=== PATIENT | female | born 1965 | race American Indian/Alaskan Native ===

== ENCOUNTER → 2018-05-06 12:37 | Outpatient (CLI) | payer MEDICAID, OTHER, SELFPAY ==
--- NOTE | 2018-05-06 12:40 | DI.CT.S_ITS ---
PROCEDURE: CT ABDOMEN PELVIS W CON INDICATIONS: Early satiety, LUQ abdominal pain TECHNIQUE: After the administration of oral and intravenous contrast, 5 mm thick sections acquired from the diaphragms to the symphysis. 5 mm thick coronal and sagittal reformats were performed. For radiation dose reduction, the following was used: automated exposure control, adjustment of mA and/or kV according to patient size. COMPARISON: [facility], CT, ABDOMEN/PELVIS WITH CONTRAST, 04/13/2017, 10:21. [facility], CT, CHEST/ABD/PEL WITH CONTRAST, 12/29/2016, 12:03. FINDINGS: Image quality: Excellent. ABDOMEN: Lung bases: There is a 3 mm noncalcified pulmonary nodule along the posterior right lower lobe pleura, which is stable when compared with prior CT of 12/29/2016. Lung bases are otherwise clear. Heart size is normal. Solid organs: Liver is normal in size and enhancement. There is a 1.7 cm gallstone. The gallbladder appears enlarged with diffuse wall thickening and a small volume of pericholecystic fluid. At the junction of the gallbladder with the cystic duct there is a 1.3 cm irregular mass-like lesion which appears to demonstrate soft tissue attenuation (Hounsfield units of 48), with decompressed cystic duct identified distally. Pancreas enhances normally. Spleen is normal in size and enhancement. No adrenal nodules. Kidneys are normal in size and enhancement, without hydronephrosis. Peritoneum and bowel: Colonic anastomotic suture line noted within the left lower quadrant of the abdomen, with a moderate volume of stool noted proximally. Surgical clips are noted within the left lower quadrant mesentery. The appendix is not clearly identified on this exam, but no right lower quadrant inflammatory findings to suggest acute appendicitis are identified. No free fluid or air. Nodes and vessels: No retroperitoneal or mesenteric adenopathy. Aorta and inferior vena cava are normal in caliber. Miscellaneous: There is a 2.0 cm wide mouth fat-containing mid abdominal ventral hernia. PELVIS: Genitourinary: Bladder wall thickness is normal. There are small foci of air within the bladder, possibly from prior Davidson catheter placement. Miscellaneous: No inguinal hernias or adenopathy. There is a 3.3 cm simple-attenuation cyst in the left adnexa. The uterus and right adnexa are unremarkable. Bones: Mild multilevel degenerative changes of the spine. IMPRESSION: #1. Indeterminate 1.3 cm soft tissue attenuation mass-like lesion at the junction of the gallbladder with the cystic duct. This may represent a true mass, an irregular attenuation gallstone, or a thickened fold of the gallbladder. Consider MRCP for further evaluation. #2. Interval development of diffuse gallbladder wall thickening with a small volume of pericholecystic fluid, which can be seen with acute or chronic cholecystitis. Clinical correlation for right upper quadrant pain suggested. #3. Postsurgical changes of the colon in the left lower quadrant of the abdomen, resulting in a moderate colonic stool burden proximally from the anastomosis. #4. 3 mm right lower lobe pulmonary nodule, stable when compared with prior CT of 12/29/16. Consider followup CT of the chest in December 2018 to demonstrate 2 year stability of this nodule. Dictated by: Juan Finnegan M.D. on 05/06/2018 at 16:04 Approved by: Juan Finnegan M.D. on 05/06/2018 at 17:05
== END ==
PROVIDERS: Family Provider Family Medicine; PCP Family Medicine; Visit Provider Surgery
DX: R10.12 Left upper quadrant pain (principal); R68.81 Early satiety; K82.9 Disease of gallbladder, unspecified; R91.1 Solitary pulmonary nodule; K80.80 Other cholelithiasis without obstruction; K43.9 Ventral hernia without obstruction or gangrene; N94.89 Other specified conditions associated with female genital organs and menstrual cycle; Z98.0 Intestinal bypass and anastomosis status
CPT/HCPCS: 74177; Q9967

== ENCOUNTER 2018-07-15 06:23 | Day surgery (SDC) | payer MEDICAID, OTHER, SELFPAY ==
--- NOTE | 2018-07-15 | PATH_ITS ---
[facility] Accession Number: [id number] . 01 Material submitted: . PART A: RANDOM COLON BIOPSIES PART B: POLYP AT 30 . 02 Diagnosis: A. Random Colon, Biopsies: Colonic mucosa with no diagnostic abnormality. Negative for active, chronic and microscopic colitis. Negative for dysplasia and malignancy. . B. Colon, Polyp at 30, Biopsy: Polypoid granulation tissue, consistent with inflamatory polyp. Negative for dysplasia and malignancy. MRV/07/16/2018 . 02 Electronically signed: . Guerita Ferris MD, Pathologist NPI- [id number] . 01 Gross description: . Received two formalin-filled containers both labeled with the patient's name. . A. In a container labeled random mucosal are four 0.1 to 0.4 cm portions of tissue. Entirely submitted in cassette A. B. In a container labeled polyp at 30, the specimen consists of a 0.5 cm portion of tissue. Entirely submitted in cassette B. ([facility]:[id number]) /[facility] . 02 Pathologist provided ICD-10: R10.9 . 02 CPT . 327591, 000292 Performed at: [address] [facility] [address], [place], [place] [id number] MD Rian Monahan MD Phone: [phone] Performed at: 02 [facility] [address] [place], [place] [id number] MD Guerita Ferris MD Phone: [phone]
[2018-07-15 07:09] VITALS: BP 155/93; PULSE 84; RESP 16; TEMP 36.5; O2SAT 99; BMI 29.7
[2018-07-15] MEDS: SODIUM CHLORIDE 0.9% 1,000 ML 84 ML IV (07:44)
[2018-07-15] MEDS: MIDAZOLAM 5 MG/5 ML VIAL IV (08:58)
[2018-07-15] MEDS: fentaNYL 250 MCG/5 ML INJ IV (08:59)
[2018-07-15 09:11] VITALS: BP 132/95; PULSE 99; RESP 13; TEMP 36.6; O2SAT 98
--- NOTE | 2018-07-15 09:11 | PM.HP.1 ---
History of Present Illness Date Patient Seen: 07/15/18 Time Patient Seen: 09:11 Chief complaint: 72079 COLONOSCOPY Narrative: Iraida is a wonderful 53-year-old lady who is well known to me from prior visits. In January of 2017 she underwent a lap assisted sigmoid colectomy for a large serrated adenoma. She did relatively well postoperatively but she says that she has continued to suffer with intermittent constipation and diarrhea and some left side flank pain. She wonders if this is related to her prior surgery or her bowel in any way. She denies any blood in her stool and denies any unexpected weight loss. Patient History Family & Social History Family History: Reviewed 07/15/18 by Inna Prescott MD Social History: household members spouse Tobacco & Substance use: Smoking Status Never smoker alcohol intake current Meds Home Medications Medication Instructions Recorded Confirmed Type [id number]-pqnoagskqelen-lyhfdskl 1 tab PO PRN PRN #0 01/07/17 07/15/18 History [Excedrin Extra Strength] cholecalciferol (vitamin D3) 1,000 unit PO DAILY #0 01/07/17 07/15/18 History [Vitamin D3] doxycycline hyclate 50 mg PO QDAY #0 01/07/17 07/15/18 History hydrochlorothiazide 12.5 mg PO QDAY #0 01/07/17 07/15/18 History hydroxyzine HCl 50 mg PO HSP PRN #0 01/07/17 07/15/18 History lorazepam 0.5 mg PO TIDP PRN #0 01/07/17 07/15/18 History losartan 25 mg PO QDAY #0 01/07/17 07/15/18 History omeprazole 40 mg PO BID #0 01/07/17 07/15/18 History acetaminophen 325 mg PO PRN PRN #0 04/13/17 07/15/18 History ibuprofen [Advil] 200 mg PO Q4HP PRN #0 04/13/17 07/15/18 History bupropion HCl 100 mg PO DAILY 07/15/18 07/15/18 History calcium carbonate [Calcium 500] 1,000 mg PO DAILY 07/15/18 07/15/18 History ondansetron [Zofran ODT] 4 mg SUBLINGUAL Q6HP PRN 07/15/18 07/15/18 History Allergies Allergy/AdvReac Type Severity Reaction Status Date / Time adhesive [ADHESIVE] Allergy Intermediate RASH - Verified 07/15/18 07:00 WITH SOME BANDAIDS, EYE LASH GLUE Review of Systems Review of Systems All systems reviewed & are unremarkable except as noted in HPI and below Exam Vital Signs (past 8 hours): - 07/15/18 07:09 Temperature 97.7 F Pulse Rate 84 Respiratory Rate 16 Blood Pressure 155/93 H Pulse Oximetry 99 Oxygen Delivery Method Room Air Narrative Exam Narrative: Examination reveals a healthy-appearing woman in no obvious distress HEENT: Normocephalic and atraumatic, pupils equal round reactive to light accommodation with anicteric sclera Lungs: Clear to auscultation bilaterally Heart: Regular rate and rhythm without murmur rub or gallop Abdomen: Soft, globally mildly tender to palpation. No rebound or guarding. Active bowel sounds. The incision is well-healed and without erythema or drainage. Extremities: Warm and well perfused without edema Assessment & Plan Plan: Assessment/Plan Narrative: 53-year-old lady with a history of a very large serrated adenoma that had to be removed surgically about 18 months ago. She continues to have symptoms of constipation and diarrhea which may be related to irritable bowel. We have discussed the risks and benefits of colonoscopy today. She needs it for multiple reasons but the most significant is for surveillance regarding her history of colon polyps. She does have a CT the abdomen and pelvis that is negative for any abnormalities or pathologic processes. We discussed risks and benefits of colonoscopy and the patient expressed desire to complete the procedure today.
--- NOTE | 2018-07-15 09:13 | PM.OP.1 ---
Operative Date/Time/Diagnoses Date of procedure: 07/15/18 Time of procedure: 09:14 Pre-op diagnosis: Personal history of colon polyps Post-op diagnosis: same Procedure & Clinicians Procedure: Colonoscopy to the cecum with snare polypectomy and random mucosal biopsies Same procedure as scheduled: Yes Indications: Last colonoscopy approximately 18 months ago Surgeon: Inna Prescott Anesthesia Type: Sedation (Versed 6 mg; fentanyl 200 mcg) Operative Notes Findings: 1. Excellent prep 2. Anastomosis at 30 cm from the anal verge. Wide open with no evidence of stricture 3. Pedunculated polyp at the anastomosis -5 mm and removed with snare and cautery. 4. Essentially normal-appearing mucosa. Multiple random mucosal biopsies were taken to rule out microscopic colitis 5. Grade 1-2 internal hemorrhoids 6. Very minimal diverticulosis Closure Type: not applicable Estimated Blood Loss (mL): 1 Procedure in detail: After obtaining informed consent, the patient was brought to the GI suite and placed in the left lateral decubitus position on the examination table. After placement of appropriate monitors, the patient was given incremental doses of Versed and Fentanyl until an appropriate level of sedation was achieved. A time out was held per SCOAP protocol. A digital rectal examination was performed and did not reveal any masses or obstructing lesions. The colonoscope was gently passed into the patient's anus and the entire colon navigated to the level of the cecum with minimal difficulty. Once in the cecum, the scope was withdrawn being sure to go before and beyond all mucosal folds and prominences and get an excellent examination. The findings are noted above. At the level of the rectal vault, the scope was retroflexed and the internal anal canal was examined. The scope was straightened and air aspirated from the colon. The instrument was removed from the patient's body and the procedure was concluded. The patient was allowed to awaken from sedation without difficulty and taken to the post-anesthesia care unit in good condition. Total sedation time was 26 min Total withdrawal time was 13 min and 41 sec Complications: none Condition: stable Disposition: PACU Plan for aftercare: 1. Discharge to home 2. We will contact you with pathology results and any additional recommendations 3. Tentatively plan for next colonoscopy in 1 year due the presence of a polyp of significant size.
[2018-07-15 09:16] VITALS: BP 119/88; PULSE 97; RESP 16; O2SAT 96
[2018-07-15 09:21] VITALS: BP 127/93; PULSE 99; RESP 12; TEMP 36.7; O2SAT 96
--- NOTE | 2018-07-15 09:24 | SUR.PHASEI ---
Stable pacu stay, dr mosqueda to bedside and spoke at length to pt about her proceedure.
[2018-07-15 09:34] VITALS: BP 121/84; PULSE 95; RESP 15; TEMP 36.2; O2SAT 94
== END 2018-07-15 09:45 | disposition home or self-care (01) ==
PROVIDERS: Family Provider Family Medicine; PCP Family Medicine; Visit Provider Surgery
PROC: 0DJD8ZZ Inspection of Lower Intestinal Tract, Via Natural or Artificial Opening Endoscopic (ICD-10-PCS; CPT 45378; principal; 2018-07-15 07:45)
DX: Z09 Encounter for follow-up examination after completed treatment for conditions other than malignant neoplasm (principal); Z86.010 Personal history of colon polyps; K64.1 Second degree hemorrhoids; K57.30 Diverticulosis of large intestine without perforation or abscess without bleeding; K63.5 Polyp of colon
CPT/HCPCS: 45385; 88305; 99152; 99153; J2250; J3010

== ENCOUNTER → 2019-02-09 07:43 | Outpatient (CLI) | payer MEDICAID, OTHER, SELFPAY ==
--- NOTE | 2019-02-09 07:53 | DI.CT.S_ITS ---
PROCEDURE: CT CHEST WO CON INDICATIONS: Solitary pulmonary nodule TECHNIQUE: Noncontrast 2.0-2.5 mm thick sections acquired from the pulmonary apices to the posterior costophrenic angles. 7 mm thick axial MIP and 5 mm coronal and sagittal reformats were then acquired. A low radiation dose technique was utilized. COMPARISON: [facility], CT, CHEST/ABD/PEL WITH CONTRAST, 12/29/2016, 12:03. [facility], CT, CT ABDOMEN PELVIS W CON, 05/06/2018, 13:49. FINDINGS: Image quality: Diagnostic, given the low radiation dose technique. Lungs and pleura: Stable appearance of a 3 mm posterior medial right lung base nodule abutting the pleural surface, present on initial available CT scan that included this area dated 12/29/16 and with no change from that study over the subsequent 2 studies and the current examination. Mediastinum: Heart size is normal. No pericardial effusion. No mediastinal adenopathy by size criteria. Thoracic aorta and central pulmonary arteries are normal in size. Esophagus is normal in caliber. No hiatal hernia. Bones and chest wall: No suspicious bony lesions. No vertebral body compression fractures. No axillary or supraclavicular adenopathy by size criteria. Thyroid gland appears normal where well seen. Abdomen: Visualized upper abdomen solid organs and bowel loops appear normal in the absence of contrast. IMPRESSION: Stable appearance of a 3 mm nodule posterior medial right lung base. By Fleischner society criteria given the stability of appearance from 12/29/16 through a total of 4 CT examination is now no additional followup should be obtained. Dictated by: Gabe Knott M.D. on 02/09/2019 at 10:11 Approved by: Gabe Knott M.D. on 02/09/2019 at 10:22
== END ==
PROVIDERS: Family Provider Family Medicine; PCP Family Medicine; Visit Provider Family Medicine
DX: R91.1 Solitary pulmonary nodule (principal)
CPT/HCPCS: 71250

== ENCOUNTER 2019-03-14 18:41 | Emergency (ER) | payer OTHER, MEDICAID, SELFPAY ==
[2019-03-14 19:03] VITALS: BP 174/96; PULSE 73; RESP 20; TEMP 36.3; O2SAT 96
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
[2019-03-14 20:44] VITALS: BP 131/92; PULSE 87; RESP 15; TEMP 36.4; O2SAT 97
== END 2019-03-14 20:45 | disposition home or self-care (01) ==
PROVIDERS: Emergency Provider Emergency Medicine; Family Provider Family Medicine; PCP Family Medicine
DX: M62.838 Other muscle spasm (principal); V49.40XA Driver injured in collision with unspecified motor vehicles in traffic accident, initial encounter
CPT/HCPCS: 99282

== ENCOUNTER → 2019-06-25 10:47 | Outpatient (CLI) | payer MEDICAID, OTHER, SELFPAY ==
--- NOTE | 2019-06-25 | DI.MG.S_ITS ---
BILATERAL DIGITAL SCREENING MAMMOGRAM 3D/2D WITH CAD: 06/25/2019 CLINICAL: Routine screening. Comparison is made to exams dated: 10/30/2015 mammogram, 10/30/2016 mammogram, and 11/03/2017 mammogram - [facility]. The tissue of both breasts is heterogeneously dense. This may lower the sensitivity of mammography. Current study was also evaluated with a Computer Aided Detection (CAD) system. No significant masses, calcifications, or other findings are seen in either breast. There has been no significant interval change. IMPRESSION: NEGATIVE There is no mammographic evidence of malignancy. A 1 year screening mammogram is recommended. This exam was interpreted at Station ID: [id number]. NOTE: For mammograms, a report in lay terms will be sent to the patient. Approximately 15% of breast malignancies will not be visualized mammographically. In the management of a palpable breast mass, a negative mammogram must not discourage biopsy of a clinically suspicious lesion. Electronically Signed By: Natalie crow/flynn:06/27/2019 10:43:43 letter sent: Normal Exam ACR BI-RADS Category 1: Negative [id number]
== END ==
PROVIDERS: PCP Family Medicine; Visit Provider Family Medicine
DX: Z12.31 Encounter for screening mammogram for malignant neoplasm of breast (principal)
CPT/HCPCS: 77063; 77067

== ENCOUNTER → 2019-07-28 13:46 | Outpatient (CLI) | payer MEDICAID, OTHER, SELFPAY ==
--- NOTE | 2019-07-28 | DI.RAD.S_ITS ---
PROCEDURE: XR ABDOMEN MIN 2V INDICATIONS: CONSTIPATION TECHNIQUE: 2 views of the abdomen were acquired. COMPARISON: None. FINDINGS: Surgical changes and devices: Surgical clips projecting in the left abdomen. Bowel: No pneumoperitoneum. The bowel gas pattern is normal. Mild stool Soft tissues: No masses; visualized solid organ contours appear normal in size. No suspicious abdominal calcifications. Bones: No suspicious bony abnormalities. IMPRESSION: No specific evidence of bowel obstruction seen at this time although if the patient's symptoms do not improve, continued surveillance with abdominal series radiographs could be performed. Mild stool. Dictated by: Zurdo De Anda M.D. on 07/28/2019 at 15:37 Approved by: Zurdo De Anda M.D. on 07/28/2019 at 15:38
--- NOTE | 2019-07-28 | DI.RAD.S_ITS ---
PROCEDURE: XR SHOULDER LT MIN 2V INDICATIONS: PAIN IN LEFT SHOULDER TECHNIQUE: 3 views of the shoulder were acquired. COMPARISON: None. FINDINGS: Bones: No fractures or dislocations. No suspicious bony lesions. Visualized ribs appear intact. Soft tissues: No suspicious soft tissue calcifications. IMPRESSION: Negative examination. If the patient's pain or other symptoms persist, consider further evaluation with MRI Dictated by: Zurdo De Anda M.D. on 07/28/2019 at 15:38 Approved by: Zurdo De Anda M.D. on 07/28/2019 at 15:39
== END ==
PROVIDERS: PCP Family Medicine; Referring Provider Family Medicine; Visit Provider Family Medicine
DX: K59.00 Constipation, unspecified (principal); M25.512 Pain in left shoulder
CPT/HCPCS: 73030; 74019

== ENCOUNTER → 2020-07-16 09:09 | Outpatient (CLI) | payer MEDICAID, OTHER, SELFPAY ==
[2020-07-16 11:42] LABS: COVID19 -Nasal RAPID Negative (Negative)
== END ==
PROVIDERS: PCP Family Medicine; Visit Provider Surgery
DX: Z01.812 Encounter for preprocedural laboratory examination (principal); Z20.822 Contact with and (suspected) exposure to COVID-19
CPT/HCPCS: 87635; C9803

== ENCOUNTER 2020-07-17 12:00 | Day surgery (SDC) | payer MEDICAID, OTHER, SELFPAY ==
[2020-07-17] VITALS (7 sets, daily range): BP systolic 100–143; BP diastolic 60–83; PULSE 74–90; RESP 14–18; TEMP 36.3–37; O2SAT 94–98; BMI 29.7
--- NOTE | 2020-07-17 | PATH_ITS ---
[facility] Accession Number: [id number] . 01 Material submitted: . sigmoid colon - SIGMOID ANASTAMOSIS BIOPSY . 01 Clinical history: . SCREENING COLONOSCOPY . 02 Diagnosis: Sigmoid Anastomosis, Biopsy: Colonic mucosa with no significant diagnostic abnormality. Negative for active inflammation, granulomas, dysplasia, and malignancy. . [facility] 07/19/2020 1620 Local . 02 Electronically signed: . Juan Enriquez MD, PhD, Pathologist NPI- [id number] . 01 Gross description: . The specimen is received in formalin, labeled sigmoid anastomosis and consists of two nesbitt fragments of soft tissue measuring 0.4 x 0.3 x 0.2 cm in aggregate. The specimen is entirely submitted in cassette A1. (EA:[id number]) /MRV 07/18/2020 1222 Local . 02 Pathologist provided ICD-10: Z12.11 . 02 CPT . 966934 Performed at: 01 [facility] [address], [place], [place] [id number] MD Rian Monahan MD Phone: [phone] Performed at: 02 [facility] [address] [place], [place] [id number] MD Guerita Ferris MD Phone: [phone]
[2020-07-17] MEDS: SODIUM CHLORIDE 0.9% 1,000 ML 200 ML IV (12:36)
--- NOTE | 2020-07-17 13:05 | PM.HP.1 ---
History of Present Illness History of Present Illness Date Patient Seen: 07/17/20 Time Patient Seen: 13:05 Chief complaint: SCREENING COLONOSCOPY Narrative: This is a 55-year-old woman with history of sigmoid colectomy in 2017 for a large polyp. She has had several follow-up colonoscopies, during which additional polyps were found. At this point she complains of having chronic constipation, left lower quadrant pain, and diarrhea. She is concerned that it is somehow related to her surgery. She also complains of hemorrhoids. She is here for surveillance colonoscopy. ROS: Thirteen system review is otherwise negative other than as mentioned below and in HPI. PE: GENERAL: Well groomed and cooperative. Appears stated age. Answers questions promptly and appropriately. Vital signs noted. HENT: Normocephalic, atraumatic. Hearing intact. EYES: Conjunctiva pink, sclera white, no periorbital swelling. CARDIOVASCULAR: Regular rate. No pedal edema. RESPIRATORY: Non-tachypneic, breathing comfortably on room air. GASTROINTESTINAL: Abdomen soft and non-distended GENITALURINARY: No flank tenderness. MUSCULOSKELETAL: Equal tone and mass bilaterally. SKIN: Warm, dry, soft, appropriate color for ethnicity. No other lesions, rashes, or wounds. NEURO: Alert and Oriented X 3. No gross sensory deficits, or cognitive issues. PSYCH: Appropriate affect and mood. Patient History Medical History (Updated 07/17/20 @ 13:08 by Mindi Vergara MD) GERD (gastroesophageal reflux disease) Family & Social History Social History: household members spouse Tobacco & Substance use: Smoking Status Never smoker alcohol intake current alcohol intake frequency holiday/special occasion Substance Use Type does not use Meds Home Medications and Allergies Home Medications Medication Instructions Recorded Confirmed Type Excedrin Extra Strength 1 tab PO PRN PRN #0 01/07/17 07/17/20 History cholecalciferol (vitamin D3) 1,000 unit PO DAILY #0 01/07/17 07/17/20 History [Vitamin D3] lorazepam 0.5 mg PO TIDP PRN #0 01/07/17 07/17/20 History losartan 25 mg PO QDAY #0 01/07/17 07/17/20 History omeprazole 40 mg PO BID #0 01/07/17 07/17/20 History acetaminophen 325 mg PO PRN PRN #0 04/13/17 07/17/20 History ibuprofen [Advil] 200 mg PO Q4HP PRN #0 04/13/17 07/17/20 History bupropion HCl 100 mg PO DAILY 07/15/18 07/17/20 History calcium carbonate [Calcium 500] 1,000 mg PO DAILY 07/15/18 07/17/20 History cyclobenzaprine 10 mg PO TID PRN #14 tab 03/14/19 07/17/20 Rx peg 3350-electrolytes 236 240 ml PO Q10M #4000 ml 07/16/20 Rx gram-22.74 gram-6.74 gram-5.86 gram solution Allergies Allergy/AdvReac Type Severity Reaction Status Date / Time adhesive [ADHESIVE] Allergy Intermediate RASH - Verified 07/17/20 12:26 WITH SOME BANDAIDS, EYE LASH GLUE Exam Vital Signs (past 8 hours): - 07/17/20 12:30 Temperature 97.6 F Pulse Rate 88 Respiratory Rate 16 Blood Pressure 143/83 H Pulse Oximetry 98 Oxygen Delivery Method Room Air Assessment & Plan Assessment and plan (1) History of colon resection: Status: Acute (2) History of colon polyps: Status: Acute (3) Abdominal pain: Status: Acute (4) Constipation: Status: Acute Assessment & Plan narrative: Risks and benefits of colonoscopy and possible polypectomy were discussed with the patient including risk of bleeding, perforation, need for additional procedures, risks of anesthesia. The patient desires to proceed with the colonoscopy procedure. COVID-19 COVID-19 status: Negative Result date/Date tested (Pos, Neg/Pending): 07/16/20 Time Spent With Patient Time with patient: 15-24 minutes Quality VTE Deep Vein Thrombosis/Pulmonary Embolism Present on Admission: No
[2020-07-17] MEDS: MIDAZOLAM 5 MG/5 ML VIAL IV (13:10)
[2020-07-17] MEDS: fentaNYL 250 MCG/5 ML INJ IV (13:11)
--- NOTE | 2020-07-17 13:11 | P.OP.ENDO_ITS ---
Operative Date/Time/Diagnoses Date of procedure: 07/17/20 Time of procedure: 13:11 Pre-op diagnosis: History of advanced colon polyps, change in bowel habits Post-op diagnosis: same (Status post sigmoid colectomy, no polyps or stenosis ) Procedure & Clinicians Study performed: Colonoscopy Procedural sedation performed by the endoscopist Biopsy of sigmoid anastomosis Same procedure as scheduled: Yes Indications: History of advanced colon polyp, history of change in bowel habits Surgeon: Mindi Vergara Procedure Notes SCOAP/Timeout: Performed Procedure in detail: The patient was brought to the room and placed in left la teral decubitus position with all bony prominences padded. A time-out was performed and then the patient was given procedural sedation starting with mg of Versed and 100 mcg of fentanyl. Vitals were monitored throughout the procedure and remained stable. Once adequately sedated, the procedure was begun. A rectal exam was performed revealing external hemorrhoid remnant tags, normal tone, no other abnormalities. The colonoscope was then introduced to the rectum and advanced to the cecum in the usual fashion. The cecum was identified by the appendiceal orifice, the mucosal tri-fold, and the ileocecal valve. The scope was then retracted while rotating side to side and examining each mucosal fold. The sigmoid anastomosis was widely patent, with no abnormalities seen. Biopsies were taken of the mucosa of the anastomosis. At the conclusion of the procedure retroflexion was performed and moderate grade 2-3 internal hemorrhoids without stigmata of bleeding were seen. The scope was then withdrawn from the rectum the procedure was concluded. The patient tolerated the procedure well and was transferred to the PACU in stable condition. Scope withdrawal time: 9 Sedation minutes: 15 Findings: internal hemorrhoids Specimen(s): other (Biopsies of sigmoid anastomosis) Complications: none Impression: No stenosis of the colon, no evidence of recurrence at the anastomosis, moderate internal hemorrhoids Post-procedure Recommendations: Colonscopy in 5 years (Depending on biopsy results) and Other recommendation (Follow-up as needed for hemorrhoids) Follow up: as needed Disposition: PACU
--- NOTE | 2020-07-17 14:16 | SUR.PHASEII ---
Pt has met discharge criteria: VSS, denied pain or nausea, able to drink fluids without difficulty. Discharge instructions discussed with pt, all questions answered. Transported via W\C to private vehicle.
== END 2020-07-17 14:16 | disposition home or self-care (01) ==
PROVIDERS: PCP Family Medicine; Referring Provider Surgery; Visit Provider Surgery
PROC: 0DJD8ZZ Inspection of Lower Intestinal Tract, Via Natural or Artificial Opening Endoscopic (ICD-10-PCS; CPT 45378; principal; 2020-07-17 13:00)
DX: R19.4 Change in bowel habit (principal); R10.32 Left lower quadrant pain; K21.9 Gastro-esophageal reflux disease without esophagitis; Z90.49 Acquired absence of other specified parts of digestive tract; K64.1 Second degree hemorrhoids
CPT/HCPCS: 45380; 99152; J2250; J3010

== ENCOUNTER → 2021-02-27 14:41 | Outpatient (CLI) | payer MEDICAID, OTHER, SELFPAY ==
--- NOTE | 2021-02-27 | DI.NM.S_ITS ---
PROCEDURE: NM EXERCISE TREADMILL NON NUC COMPARISON: None. INDICATIONS: Chest pain, unspecified FINDINGS: Baseline ECG sinus rhythm. Gianni protocol 6 minutes, 33 seconds. 7.0 METS. ANGELO +8%. 86% peak predicted heart rate achieved. Peak blood pressure 172/80. No chest pain during exercise however 4 out of 10 left-sided chest pressure post exercise. Stress ECG sinus tachycardia, no ST segment changes, no arrhythmias. IMPRESSION: 1. No evidence of exercise-induced ischemia or arrhythmia. 2. Fair exercise capacity. Dictated by: Radha Mack D.O. on 02/27/2021 at 17:40 Approved by: Radha Mack M.D. on 02/27/2021 at 17:43
[2021-02-27 15:44] LABS: COVID19 -Nasal RAPID Negative (Negative)
== END ==
PROVIDERS: PCP Family Medicine; Referring Provider Internal Medicine Cardiovascular Disease; Visit Provider Internal Medicine Cardiovascular Disease
DX: R07.9 Chest pain, unspecified (principal); Z20.822 Contact with and (suspected) exposure to COVID-19
CPT/HCPCS: 87635; 93017

== ENCOUNTER → 2021-04-02 15:29 | Outpatient (CLI) | payer MEDICAID, OTHER, SELFPAY ==
[2021-04-02 16:15] LABS: Add Manual Diff / Slide Review NO; Basophils Absolute Auto 100 /uL (0-100); Basophils Percent Auto 0.7 % (0-2); Eosinophils Absolute Auto 200 /uL (0-450); Hematocrit 40.3 % (36-46); Hemoglobin 13.4 g/dL (12.0-16.0); Lymphocytes Absolute Auto 2600 /uL (1100-4500); Lymphocytes Percent Auto 35.4 % (25-40); Mean Corpuscular HGB Conc 33.3 % (30-36); Mean Corpuscular Hemoglobin 25.9 PG (26-34); Mean Corpuscular Volume 77.7 fL (80-100); Monocytes Absolute Auto 500 /uL (0-900); Monocytes Percent Auto 6.7 % (3-14); Neutrophils Absolute Auto 4000 /uL (1500-7000); Neutrophils Percent Auto 54.2 % (50-75); Platelet Count 287 X10^3/uL (150-400); Red Blood Cell Count 5.19 X10^6/uL (4.0-5.2); Red Cell Distribution Width 13.7 % (11.6-14.8); White Blood Cell Count 7.3 X10^3/uL (4.5-11.0)
[2021-04-02 16:45] LABS: Cholesterol 188 mg/dL (140-199); HDL Cholesterol 69 mg/dL (40-60); LDL Cholesterol Calculated 54 mg/dL (<100); Triglycerides 327 mg/dL (35-150)
[2021-04-02 16:48] LABS: Alanine Aminotransferase 47 IU/L (<35); Albumin 4.8 g/dL (3.5-5.0); Albumin Globulin Ratio 1.3 (1.0-2.8); Alkaline Phosphatase 105 U/L (38-126); Aspartate Aminotransferase 35 IU/L (14-36); Bilirubin Total 0.4 mg/dL (0.2-1.3); Bilirubin Unconjugated 0.3 mg/dL (0.0-1.1); Globulin 3.6 g/dL (1.7-4.1); HEMOLYSIS < 15 (0-50); Total Protein 8.4 g/dL (6.3-8.2)
[2021-04-03 03:41] LABS: Hepatitis B Surf AB Quant <3.1 mIU/mL (Immunity>9.9)
[2021-04-03 09:36] LABS: Rubeola Measles IgG > 300.0 AU/mL (Immune >16.4)
[2021-04-03 18:00] LABS: Rubella Antibody IgG 50.7 IU/mL (>15)
== END ==
PROVIDERS: PCP Family Medicine; Referring Provider Internal Medicine Cardiovascular Disease; Visit Provider Internal Medicine Cardiovascular Disease
DX: Z20.821 Contact with and (suspected) exposure to Zika virus (principal); E78.5 Hyperlipidemia, unspecified; R94.5 Abnormal results of liver function studies; B18.0 Chronic viral hepatitis B with delta-agent; Z01.84 Encounter for antibody response examination
CPT/HCPCS: 36415; 80061; 80076; 85025; 86706; 86735; 86762; 86765

== ENCOUNTER 2022-04-08 10:57 | Emergency (ER) | payer MEDICAID, OTHER, SELFPAY ==
[2022-04-08 11:05] VITALS: BP 175/102; PULSE 97; RESP 15; TEMP 36.1; O2SAT 99
--- NOTE | 2022-04-08 11:21 | ED.FALL ---
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 She has a sleep disorder that causes her to sleep violently and occasionally she will leave from the bed and run across the room without being aware of it. This happened this morning and she struck her head on the floor and heard a large cracking sound in her neck. Subsequent to this she is had normal function of her arms and legs but feels that her speech is a little bit off. To her knowledge she did not lose consciousness and she has not had any vomiting. She is concerned about potential neck or head injury. Related Data Home Medications Medication Instructions Recorded Confirmed [id number] 250 1 tab PO PRN PRN Headache ##0 01/07/17 03/26/22 mg-250 mg-65 mg tablet (Excedrin Extra Strength) cholecalciferol (vitamin D3) 25 1,000 unit PO DAILY ##0 01/07/17 03/26/22 mcg (1,000 unit) capsule (Vitamin D3) lorazepam 0.5 mg tablet 0.5 mg PO TIDP PRN Anxiety ##0 01/07/17 03/26/22 losartan 50 mg tablet 25 mg PO QDAY ##0 01/07/17 03/26/22 omeprazole 20 mg capsule,delayed 40 mg PO BID ##0 01/07/17 03/26/22 release ibuprofen 200 mg tablet (Advil) 200 mg PO Q4HP PRN Pain (Scale 04/13/17 03/26/22 Score 1-3) ##0 bupropion HCl 100 mg tablet,12 hr 150 mg PO DAILY 03/26/22 03/26/22 sustained-release hydroxyzine HCl 50 mg tablet 50 mg PO BEDTIME 03/26/22 03/26/22 metformin 500 mg tablet 500 mg PO BID 03/26/22 03/26/22 rosuvastatin 20 mg tablet 20 mg PO DAILY 03/26/22 03/26/22 sertraline 25 mg tablet 25 mg PO BID 03/26/22 03/26/22 terbinafine HCl 250 mg tablet 250 mg PO DAILY 03/26/22 03/26/22 Allergies Allergy/AdvReac Type Severity Reaction Status Date / Time adhesive [ADHESIVE] Allergy Intermediate RASH - Verified 04/08/22 11:14 WITH SOME BANDAIDS, EYE LASH GLUE Review of Systems Review of Systems Narrative: Review of systems is negative other than as noted. Patient History Medical History (Updated 04/08/22 @ 13:42 by Rashid Negrete MD) GERD (gastroesophageal reflux disease) Social History household members: spouse Smoking Status: Never smoker alcohol intake: current substance use type: does not use Smoking Status: Never smoker alcohol intake frequency: holidays/special occasions only Substance Use Type: does not use Exam Narrative Exam Narrative: GENERAL: Alert, cooperative and in no distress. HEAD: Atraumatic. Normocephalic. EYES: Sclera are clear without icterus. Extraocular movements are full. ENT: No rhinorrhea. NECK: No midline tenderness but she does have pain around C7 when she rotates her head. Chest examination is normal as far as palpation. There is no tenderness or crepitus to palpation of the chest with compression anterior posterior and laterally no point tenderness in the ribs GASTROINTESTINAL: Abdomen soft, non-tender, nondistended. EXTREMITIES: No edema, full range of motion. No obvious trauma. BACK: Normal inspection, no CVA tenderness. NEURO: Nonfocal examination, normal speech, normal gait. SKIN: No rash or erythema of visible areas PSYCH: Normally oriented. Normal range of affect. Appropriate behavior Initial Vital Signs Initial Vital Signs: Vital Signs Temperature 96.9 F L 04/08/22 11:05 Pulse Rate 97 H 04/08/22 11:05 Respiratory Rate 15 04/08/22 11:05 Blood Pressure 175/102 H 04/08/22 11:05 Pulse Oximetry 99 04/08/22 11:05 Oxygen Delivery Method 04/08/22 11:05 Course Orders Ordered: ED Orders 04/08/22 12:14 CT cervical spine wo con Stat CT head/brain wo con Stat Vital Signs Vital signs: Vital Signs - 8 hr 04/08/22 11:05 Temperature 96.9 F L Pulse Rate 97 H Respiratory Rate 15 Blood Pressure 175/102 H Pulse Oximetry 99 Oxygen Delivery Method Room Air MDM - Fall Imaging Data CT - cervical spine: Radiologist's Impression: IMPRESSION:? Degenerative changes of visualized fracture. ? Dictated by: Socorro Pineda M.D. on 04/08/2022 at 12:42 ? ? Approved by: Socorro Pineda M.D. on 04/08/2022 at 12:43 ? CT scan - head: Radiologist's Impression: IMPRESSION:? ? 1. No acute intracranial process. ? ? Dictated by: Socorro Pineda M.D. on 04/08/2022 at 12:36 ? ? Approved by: Socorro Pineda M.D. on 04/08/2022 at 12:37 ? Discharge Plan Departure Patient Disposition: Home Clinical Impression: Concussion without loss of consciousness Activity Restrictions/Additional Instructions: No dangerous injuries are identified on the CT images of the brain and the cervical spine. Certainly you have some injury there but no broken bones or dangerous neurologic compromise. I recommend Tylenol 1000 mg taken together with 400 mg of ibuprofen every 6 hours, copious oral hydration, ice or heat as helpful and follow-up with your primary care provider in about a week to reassess. Follow-up right away for new or worsening symptoms. Prescriptions: No Action losartan 50 MG tablet 25 mg PO QDAY Qty: 0 Label Comments: 25-50mg depending on bp omeprazole 20 MG capsule,delayed release(DR/EC) 40 mg PO BID Qty: 0 lorazepam 0.5 MG tablet 0.5 mg PO TIDP PRN (Reason: Anxiety) Qty: 0 cholecalciferol (vitamin D3) [Vitamin D3] 1,000 unit Capsule 1,000 unit PO DAILY Qty: 0 Excedrin Extra Strength 1 EACH tablet 1 tab PO PRN PRN (Reason: Headache) Qty: 0 ibuprofen [Advil] 200 MG tablet 200 mg PO Q4HP PRN (Reason: Pain (Scale Score 1-3)) Qty: 0 bupropion HCl 100 mg tablet sustained-release 12 hr 150 mg PO DAILY metformin 500 mg tablet 500 mg PO BID rosuvastatin 20 mg tablet 20 mg PO DAILY sertraline 25 mg tablet 25 mg PO BID terbinafine HCl 250 mg tablet 250 mg PO DAILY hydroxyzine HCl 50 mg tablet 50 mg PO BEDTIME Referrals: Blessing Beck MD [Primary Care Provider] -
--- NOTE | 2022-04-08 11:24 | PC.NURSE ---
c-collar applied at triage.
--- NOTE | 2022-04-08 12:14 | DI.CT.S_ITS ---
PROCEDURE: CT HEAD/BRAIN WO CON INDICATIONS: r/o fx TECHNIQUE: Noncontrast 4.5 mm thick angled axial sections acquired from the foramen magnum to the vertex, with coronal and sagittal reformats. For radiation dose reduction, the following was used: automated exposure control, adjustment of mA and/or kV according to patient size. COMPARISON: None. FINDINGS: Image quality: Excellent. CSF spaces: Basal cisterns are patent. No extra-axial fluid collections. Ventricles are normal in size and shape. Brain: No midline shift. No intracranial masses or hemorrhage. Carroll-white matter interface is normal. Skull and face: Calvarium and visualized facial bones are intact, without suspicious lesions. Sinuses: Visualized sinuses and mastoids are clear. IMPRESSION: 1. No acute intracranial process. Dictated by: Socorro Pineda M.D. on 04/08/2022 at 12:36 Approved by: Socorro Pineda M.D. on 04/08/2022 at 12:37
--- NOTE | 2022-04-08 12:14 | DI.CT.S_ITS ---
PROCEDURE: CT CERVICAL SPINE WO CON INDICATIONS: r/o fx TECHNIQUE: Noncontrast 3 mm thick sections acquired from the skull base to the T4 level. Sagittal and coronal reformats were then constructed. For radiation dose reduction, the following was used: automated exposure control, adjustment of mA and/or kV according to patient size. COMPARISON: [facility], CT, CT HEAD/BRAIN WO CON, 04/08/2022, 12:23. FINDINGS: Image quality: Excellent. Bones: No fractures or dislocations. Visualized superior ribs are intact. Multilevel degenerative changes are present most severe at C5-6 and C6-7. Soft tissues: Prevertebral soft tissues are normal in thickness. No paravertebral hematomas. No apical pneumothoraces. IMPRESSION: Degenerative changes of visualized fracture. Dictated by: Socorro Pineda M.D. on 04/08/2022 at 12:42 Approved by: Socorro Pineda M.D. on 04/08/2022 at 12:43
[2022-04-08 13:47] VITALS: BP 175/102; PULSE 82; RESP 18; O2SAT 98
[2022-04-08 13:51] VITALS: BP 123/72; PULSE 82; RESP 18; O2SAT 98
--- NOTE | 2022-04-08 13:53 | PC.NURSE ---
D/C VSS 123/72 HR 82 98% RA
== END 2022-04-08 13:53 | disposition home or self-care (01) ==
PROVIDERS: Emergency Provider Family Medicine Addiction Medicine; PCP Family Medicine
DX: S06.0X0A Concussion without loss of consciousness, initial encounter (principal); W18.30XA Fall on same level, unspecified, initial encounter
CPT/HCPCS: 70450; 72125; 99281; 99283

== ENCOUNTER 2022-08-23 07:53 | Emergency (ER) | payer MEDICAID, OTHER, SELFPAY ==
[2022-08-23] VITALS (9 sets, daily range): BP systolic 139–197; BP diastolic 67–110; PULSE 87–98; RESP 18–23; O2SAT 95–98; BMI 27.3
--- NOTE | 2022-08-23 08:13 | ED_ITS ---
HPI - Chest Pain General Chief Complaint: Fall Stated Complaint: violent sleeping bumped head, hard time breathe Time Seen by Provider: 08/23/22 08:01 Source: patient Mode of arrival: Ambulatory Limitations: no limitations History of Present Illness HPI narrative: Patient is a 57-year-old female history of type 2 diabetes, hyperlipidemia, violent sleeping presenting today after violent sleeping episode. This does happened to her she sleep walks falls down and gets injured. She reports that she is staying with her she was at the end of the bed home health fell down she is having excruciating sternal pain. It hurts to take a deep breath. She is not sure if she hit her head she is not on anti platelet or anticoagulation medication. He was seen evaluated here March 2022 for something similar where she had head CT diagnosed with a concussion. He definitely reports that her sternal and her back hurt a definitely hurts to take a deep breath that is her with positioning and movement. Related Data Home Medications Medication Instructions Recorded Confirmed gyhymre-yyouxpoczufkc-[id number] 250 1 tab PO PRN PRN Headache ##0 01/07/17 05/07/22 mg-250 mg-65 mg tablet (Excedrin Extra Strength) cholecalciferol (vitamin D3) 25 1,000 unit PO DAILY ##0 01/07/17 05/07/22 mcg (1,000 unit) capsule (Vitamin D3) lorazepam 0.5 mg tablet 0.5 mg PO TIDP PRN Anxiety ##0 01/07/17 05/07/22 losartan 50 mg tablet 25 mg PO QDAY ##0 01/07/17 05/07/22 omeprazole 20 mg capsule,delayed 40 mg PO BID ##0 01/07/17 05/07/22 release ibuprofen 200 mg tablet (Advil) 200 mg PO Q4HP PRN Pain (Scale 04/13/17 05/07/22 Score 1-3) ##0 bupropion HCl 100 mg tablet,12 hr 150 mg PO DAILY 03/26/22 05/07/22 sustained-release hydroxyzine HCl 50 mg tablet 50 mg PO BEDTIME 03/26/22 05/07/22 metformin 500 mg tablet 500 mg PO BID 03/26/22 05/07/22 rosuvastatin 20 mg tablet 20 mg PO DAILY 03/26/22 05/07/22 sertraline 25 mg tablet 25 mg PO BID 03/26/22 05/07/22 terbinafine HCl 250 mg tablet 250 mg PO DAILY 03/26/22 05/07/22 Previous Rx's Medication Instructions Recorded hydrocodone 5 mg-acetaminophen 325 1 tab PO Q6H PRN pain #10 tabs 08/23/22 mg tablet Allergies Allergy/AdvReac Type Severity Reaction Status Date / Time adhesive [ADHESIVE] Allergy Intermediate RASH - Verified 05/07/22 16:31 WITH SOME BANDAIDS, EYE LASH GLUE Review of Systems Review of Systems ROS Unobtainable: All systems reviewed & are unremarkable except as noted in HPI and below Patient History Medical History GERD (gastroesophageal reflux disease) REM sleep behavior disorder Social History household members: spouse Smoking Status: Never smoker alcohol intake: current substance use type: does not use Smoking Status: Never smoker alcohol intake frequency: holidays/special occasions only Substance Use Type: does not use Exam Initial Vital Signs Initial Vital Signs: Vital Signs Pulse Rate 98 H 08/23/22 07:58 Blood Pressure 197/110 H 08/23/22 07:58 Pulse Oximetry 97 08/23/22 07:58 GENERAL: Alert 57-year-old female appears uncomfortable HEENT: Head atraumatic,EOMI, pupils reactive, face symmetric, moist mucous membranes CARDIOVASCULAR: Regular rate and rhythm without murmurs, rubs or gallops. RESPIRATORY: Breath sounds equal bilaterally, no wheezes rales or rhonchi. Tender over sternal no contusion no erythema no paradoxical ABDOMEN: Soft, nontender. Normoactive bowel sounds all 4 quadrants. No guarding or rebound. EXTREMITIES: Normal range of motion, no clubbing or edema. Neurovascularly intact BACK: Tender thoracic spine but paraspinal area no specific localization. NEUROLOGICAL: Alert and oriented x4.Normal gait and speech. SKIN: Warm, dry, no laceration, no petechiae, no rashes or lesions. Course Orders Ordered: ED Orders 08/23/22 08:00 Complete Blood Count AUTO DIFF Stat Comprehensive Metabolic Panel Stat Lipase Stat Troponin & CK Cardiac Panel Stat 08/23/22 08:14 XR chest 2V Stat EKG-12 Lead Stat Discontinued Medications Ketorolac Tromethamine (Ketorolac 30 Mg/Ml Vial) 15 mg IV NOW ONE Stop: 08/23/22 08:14 Last Admin: 08/23/22 08:21 Dose: 15 mg Documented By: PLACIDO Vital Signs Vital signs: Vital Signs - 8 hr 08/23/22 08:04 08/23/22 07:58 08/23/22 07:58 Pulse Rate 97 H 98 H Respiratory Rate 18 Blood Pressure 178/107 H 197/110 H Pulse Oximetry 96 97 Oxygen Delivery Method Room Air 08/23/22 08:00 08/23/22 08:00 08/23/22 08:31 Pulse Rate 97 H 96 H Respiratory Rate 21 22 Blood Pressure 178/107 H Pulse Oximetry 97 97 Oxygen Delivery Method 08/23/22 08:34 08/23/22 08:34 08/23/22 08:40 Pulse Rate 88 Respiratory Rate 18 Blood Pressure 160/71 H 144/67 H Pulse Oximetry 98 Oxygen Delivery Method 08/23/22 08:40 08/23/22 09:00 08/23/22 09:00 Pulse Rate 90 87 Respiratory Rate 21 21 Blood Pressure 139/74 Pulse Oximetry 97 97 Oxygen Delivery Method 08/23/22 09:20 08/23/22 09:20 08/23/22 09:55 Pulse Rate 91 H 87 Respiratory Rate 23 18 Blood Pressure 148/79 H 144/85 H Pulse Oximetry 96 95 Oxygen Delivery Method Room Air MDM - Chest Pain Lab Data 08/23/22 08:00 08/23/22 08:00 Labs: Lab Results 08/23/22 08/23/22 Range/Units 08:00 08:00 WBC 8.3 (4.5-11.0) X10^3/uL RBC 5.16 (4.0-5.2) X10^6/uL Hgb 13.7 (12.0-16.0) g/dL Hct 40.2 (36-46) % MCV 77.9 L (80-100) fL MCH 26.5 (26-34) PG MCHC 34.0 (30-36) % RDW 12.7 (11.6-14.8) % Plt Count 266 (150-400) X10^3/uL Neut % (Auto) 53.9 (50-75) % Lymph % (Auto) 36.1 (25-40) % [facility] % (Auto) 7.0 (3-14) % Eos % (Auto) 2.3 (2-4) % Baso % (Auto) 0.7 (0-2) % Neut # (Auto) 4500 (5923-5104) /uL Lymph # (Auto) 3000 (5880-9611) /uL [facility] # (Auto) 600 (0-900) /uL Eos # (Auto) 200 (0-450) /uL Baso # (Auto) 100 (0-100) /uL Sodium 142 (137-145) mmol/L Potassium 3.6 (3.4-5.1) mmol/L Chloride 104 (98-107) mmol/L Carbon Dioxide 27 (22-32) mmol/L BUN 9 (7-17) mg/dL Creatinine 0.77 (0.52-1.04) mg/dL Estimated GFR > 60 (>60) mL/min BUN/Creatinine Ratio 11.7 (6-22) Glucose 132 H (70-100) mg/dL Calcium 9.3 (8.4-10.2) mg/dL Total Bilirubin 0.3 (0.2-1.3) mg/dL AST 42 H (14-36) IU/L ALT 40 H (<35) IU/L Alkaline Phosphatase 134 H (38-126) U/L Total Creatine Kinase 44 (30-135) U/L CK-MB (CK-2) TNP CK-MB (CK-2) Rel Index TNP Troponin I < 0.012 (0.01-0.034) ng/mL Total Protein 8.0 (6.3-8.2) g/dL Albumin 4.6 (3.5-5.0) g/dL Globulin 3.4 (1.7-4.1) g/dL Albumin/Globulin Ratio 1.4 (1.0-2.8) Lipase 127 (23-300) U/L Imaging Data Chest x-ray: Radiologist's Impression: PROCEDURE:? XR CHEST 2V ? INDICATIONS:? fall sternal pain throacic pain ? TECHNIQUE:? 2 views of the chest were acquired.? ? COMPARISON:? CT, CT CHEST WO CON, 02/09/2019, 7:45. ? FINDINGS:? ? Surgical changes and devices:? None.? ? Lungs and pleura:? Lungs are clear.? No pleural effusions or pneumothorax.? ? Mediastinum:? Mediastinal contours are normal.? Heart size is normal.? ? Bones and chest wall:? No suspicious bony abnormalities.? Soft tissues appear unremarkable.? ? IMPRESSION:? No acute pulmonary process. ? ? Dictated by: Socorro Pineda M.D. on 08/23/2022 at 8:41 ? ? Approved by: Socorro Pineda M.D. on 08/23/2022 at 8:42 ? ECG Data Interpretation: Normal sinus rhythm rate 87 ME interval 78 QRS [address] changes no T- wave inversions MDM Narrative Medical decision making narrative: Patient has a history of violent sleep walking sounds as though she fell landing on her chest. There is no evidence of pneumothorax sternal fracture or other injury on her x-ray. Blood work is overall reassuring. She is given Toradol here for pain. Since this is after fallen injury definitely worse with pain palpation. I suspect more musculoskeletal rather than cardiac nature. Unclear if she hit her head, however, she does not have any focal deficits not on ant iplatelet or anticoagulation medication. I do not see need for head CT at this time. Discharge Plan Departure Patient Disposition: Home Clinical Impression: Acute costochondritis, Contusion of rib Instructions: DI for Costochondritis Activity Restrictions/Additional Instructions: *You have been diagnosed with costochondritis, rib contusion *What to do: At this time expect to be sore for the next couple of days and up to about 2 weeks. Take it easy. Increase activity as tolerated. *Continue to take medications as directed Ibuprofen 600 mg every 6 hours if needed for yemr-xn-jptfzmzj Reynolds 1 tablet every 6 hours if needed for severe pain--> SENT TO [facility] *Follow up with your primary care provider in 2-3 days or call [phone] *Return to ER if you should have increasing pain shortness of breath fever or any new, worsening or concerning symptoms CONTROLLED SUBSTANCE DISCHARGE (Narcotoic/benzodiazepine/Flexeril/Phenergan) 1. You have been prescribed narcotic medications, it does have acetaminophen/Tylenol/paracetamol in it, DO NOT TAKE MORE THAN 4,00mg in 24 hours of Tylenol. TRAMADOL DOES NOT CONTAIN TYLENOL 2. Please understand that we cannot provide further refills of narcotics, benzodiazepines or controlled substances through the ED and her pain management will need to be through your provider. 3. While on these medications you cannot drive or operate heavy machinery. 4. You cannot sign legal documents or perform any duties such as this. 5. As long as you're taking opiate pain medications he should also be taking a stool softener such as Colace, Dulcolax, MiraLAX or prune juice, to help avoid constipation. Prescriptions: New hydrocodone-acetaminophen 5-325 mg tablet 1 tab PO Q6H PRN (Reason: pain) Qty: 10 0RF No Action losartan 50 MG tablet 25 mg PO QDAY Qty: 0 Patient Comments: 25-50mg depending on bp omeprazole 20 MG capsule,delayed release(DR/EC) 40 mg PO BID Qty: 0 lorazepam 0.5 MG tablet 0.5 mg PO TIDP PRN (Reason: Anxiety) Qty: 0 cholecalciferol (vitamin D3) [Vitamin D3] 1,000 unit Capsule 1,000 unit PO DAILY Qty: 0 Excedrin Extra Strength 1 EACH tablet 1 tab PO PRN PRN (Reason: Headache) Qty: 0 ibuprofen [Advil] 200 MG tablet 200 mg PO Q4HP PRN (Reason: Pain (Scale Score 1-3)) Qty: 0 bupropion HCl 100 mg tablet sustained-release 12 hr 150 mg PO DAILY metformin 500 mg tablet 500 mg PO BID rosuvastatin 20 mg tablet 20 mg PO DAILY sertraline 25 mg tablet 25 mg PO BID terbinafine HCl 250 mg tablet 250 mg PO DAILY hydroxyzine HCl 50 mg tablet 50 mg PO BEDTIME Referrals: Blessing Beck MD [Primary Care Provider] - Stand Alone Forms: Patient Portal/API
--- NOTE | 2022-08-23 08:14 | DI.RAD.S_ITS ---
PROCEDURE: XR CHEST 2V INDICATIONS: fall sternal pain throacic pain TECHNIQUE: 2 views of the chest were acquired. COMPARISON: CT, CT CHEST WO CON, 02/09/2019, 7:45. FINDINGS: Surgical changes and devices: None. Lungs and pleura: Lungs are clear. No pleural effusions or pneumothorax. Mediastinum: Mediastinal contours are normal. Heart size is normal. Bones and chest wall: No suspicious bony abnormalities. Soft tissues appear unremarkable. IMPRESSION: No acute pulmonary process. Dictated by: Socorro Pineda M.D. on 08/23/2022 at 8:41 Approved by: Socorro Pineda M.D. on 08/23/2022 at 8:42
[2022-08-23] MEDS: KETOROLAC 30 MG/ML VIAL 15 MG IV (08:21)
[2022-08-23 08:27] LABS: Add Manual Diff / Slide Review NO; Basophils Absolute Auto 100 /uL (0-100); Basophils Percent Auto 0.7 % (0-2); Eosinophils Absolute Auto 200 /uL (0-450); Eosinophils Percent Auto 2.3 % (2-4); Hematocrit 40.2 % (36-46); Hemoglobin 13.7 g/dL (12.0-16.0); Lymphocytes Absolute Auto 3000 /uL (1100-4500); Lymphocytes Percent Auto 36.1 % (25-40); Mean Corpuscular Hemoglobin 26.5 PG (26-34); Mean Corpuscular Volume 77.9 fL (80-100); Monocytes Absolute Auto 600 /uL (0-900); Neutrophils Absolute Auto 4500 /uL (1500-7000); Neutrophils Percent Auto 53.9 % (50-75); Platelet Count 266 X10^3/uL (150-400); Red Blood Cell Count 5.16 X10^6/uL (4.0-5.2); Red Cell Distribution Width 12.7 % (11.6-14.8); White Blood Cell Count 8.3 X10^3/uL (4.5-11.0)
[2022-08-23 08:28] LABS: HEMOLYSIS < 15 (0-50)
[2022-08-23 08:33] LABS: Alanine Aminotransferase 40 IU/L (<35); Albumin 4.6 g/dL (3.5-5.0); Albumin Globulin Ratio 1.4 (1.0-2.8); Alkaline Phosphatase 134 U/L (38-126); Aspartate Aminotransferase 42 IU/L (14-36); BUN Creatinine Ratio 11.7 (6-22); Bilirubin Total 0.3 mg/dL (0.2-1.3); Blood Urea Nitrogen 9 mg/dL (7-17); Calcium 9.3 mg/dL (8.4-10.2); Carbon Dioxide 27 mmol/L (22-32); Chloride 104 mmol/L (98-107); Estimated Glomerular Filt Rate > 60 mL/min (>60); Globulin 3.4 g/dL (1.7-4.1); Glucose 132 mg/dL (70-100); Lipase 127 U/L (23-300); Potassium 3.6 mmol/L (3.4-5.1); Sodium 142 mmol/L (137-145)
[2022-08-23 08:44] LABS: Troponin I < 0.012 ng/mL (0.01-0.034)
[2022-08-23 08:58] LABS: Creatine Kinase 44 U/L (30-135)
== END 2022-08-23 09:58 | disposition home or self-care (01) ==
PROVIDERS: Emergency Provider Emergency Medicine; PCP Family Medicine
DX: M94.0 Chondrocostal junction syndrome [Tietze] (principal); S20.219A Contusion of unspecified front wall of thorax, initial encounter; W06.XXXA Fall from bed, initial encounter
CPT/HCPCS: 36415; 71046; 80053; 82550; 83690; 84484; 85025; 93005; 96374; 99284; J1885

== ENCOUNTER 2022-08-29 12:22 | Emergency (ER) | payer MEDICAID, OTHER, SELFPAY ==
[2022-08-29] VITALS (7 sets, daily range): BP systolic 140–184; BP diastolic 72–98; PULSE 80–92; RESP 14–16; TEMP 36.3–36.7; O2SAT 95–97; BMI 27.3
--- NOTE | 2022-08-29 18:12 | DI.CT.S_ITS ---
PROCEDURE: CT HEAD/BRAIN WO CON INDICATIONS: head injury TECHNIQUE: Noncontrast 4.5 mm thick angled axial sections acquired from the foramen magnum to the vertex, with coronal and sagittal reformats. For radiation dose reduction, the following was used: automated exposure control, adjustment of mA and/or kV according to patient size. COMPARISON: [facility], CT, CT HEAD/BRAIN WO CON, 04/08/2022, 12:23. FINDINGS: Image quality: Excellent. CSF spaces: Basal cisterns are patent. No extra-axial fluid collections. Ventricles are normal in size and shape. Brain: No midline shift. No intracranial masses or hemorrhage. Carroll-white matter interface is normal. Skull and face: Calvarium and visualized facial bones are intact, without suspicious lesions. Sinuses: Visualized sinuses and mastoids are clear. IMPRESSION: No evidence acute intracranial abnormality. Dictated by: Kurtis Mccann M.D. on 08/29/2022 at 19:08 Approved by: Kurtis Mccann M.D. on 08/29/2022 at 19:08
--- NOTE | 2022-08-29 18:12 | DI.CT.S_ITS ---
PROCEDURE: CT CERVICAL SPINE WO CON INDICATIONS: head injury TECHNIQUE: Noncontrast 3 mm thick sections acquired from the skull base to the T4 level. Sagittal and coronal reformats were then constructed. For radiation dose reduction, the following was used: automated exposure control, adjustment of mA and/or kV according to patient size. COMPARISON: [facility], CT, CT CERVICAL SPINE WO CON, 04/08/2022, 12:23. FINDINGS: Image quality: Excellent. Bones: No fractures or dislocations. Visualized superior ribs are intact. Cervical spondylosis with multilevel facet arthropathy and uncovertebral joint hypertrophy. Mild compressions of T2, T3, T4, and T5 appear to likely be chronic. Soft tissues: Prevertebral soft tissues are normal in thickness. No paravertebral hematomas. No apical pneumothoraces. IMPRESSION: 1. No evidence acute cervical fracture or dislocation. 2. Cervical spondylosis. 3. Multiple upper thoracic compressions are likely chronic. Comment: If suspect upper thoracic compression fractures may be acute, consider thoracic spine MRI. Additional comment: In this patient with numerous compressions, recommend DEXA bone densitometry. Consider multiple myeloma as a potential etiology. Dictated by: Kurtis Mccann M.D. on 08/29/2022 at 19:01 Approved by: Kurtis Mccann M.D. on 08/29/2022 at 19:07
--- NOTE | 2022-08-29 18:12 | ED.HA ---
HPI - Headache General Chief Complaint: Headache Stated Complaint: t-7 contusion on chest/severe headache/hit head Time Seen by Provider: 08/29/22 18:02 Mode of arrival: Family Vehicle History of Present Illness HPI Narrative: 57-year-old female non smoker with a history REM sleep disorder presents for evaluation of head injury from last week. She had been sleeping and woke up and fell forward into the wall striking the left side of her head and injuring her anterior chest. She was seen and evaluated and had a reassuring visit without evidence of traumatic injury. Over the course of the week she is had ongoing left-sided headache and has felt a bit foggy. She denies any loss of consciousness, vomiting, takes no blood thinners. She is had no seizure-like activity. She denies any numbness, tingling or weakness of her extremities. She denies any midline neck pain. She does still have some anterior chest pain but is not short of breath, has had no cough. Related Data Home Medications Medication Instructions Recorded Confirmed sfnolbw-shpjguczdunco-vqhqzgbw 250 1 tab PO PRN PRN Headache ##0 01/07/17 05/07/22 mg-250 mg-65 mg tablet (Excedrin Extra Strength) cholecalciferol (vitamin D3) 25 1,000 unit PO DAILY ##0 01/07/17 05/07/22 mcg (1,000 unit) capsule (Vitamin D3) lorazepam 0.5 mg tablet 0.5 mg PO TIDP PRN Anxiety ##0 01/07/17 05/07/22 losartan 50 mg tablet 25 mg PO QDAY ##0 01/07/17 05/07/22 omeprazole 20 mg capsule,delayed 40 mg PO BID ##0 01/07/17 05/07/22 release ibuprofen 200 mg tablet (Advil) 200 mg PO Q4HP PRN Pain (Scale 04/13/17 05/07/22 Score 1-3) ##0 bupropion HCl 100 mg tablet,12 hr 150 mg PO DAILY 03/26/22 05/07/22 sustained-release hydroxyzine HCl 50 mg tablet 50 mg PO BEDTIME 03/26/22 05/07/22 metformin 500 mg tablet 500 mg PO BID 03/26/22 05/07/22 rosuvastatin 20 mg tablet 20 mg PO DAILY 10/05/22 11/16/22 sertraline 25 mg tablet 25 mg PO BID 03/26/22 05/07/22 terbinafine HCl 250 mg tablet 250 mg PO DAILY 03/26/22 05/07/22 Previous Rx's Medication Instructions Recorded hydrocodone 5 mg-acetaminophen 325 1 tab PO Q6H PRN pain #10 tabs 08/23/22 mg tablet Allergies Allergy/AdvReac Type Severity Reaction Status Date / Time adhesive [ADHESIVE] Allergy Intermediate RASH - Verified 08/29/22 13:01 WITH SOME BANDAIDS, EYE LASH GLUE Review of Systems Review of Systems Narrative: GENERAL: Denies chills, fatigue, malaise, fever, sweats. HEENT: Denies sinus pain, ear pain, sore throat, difficulty swallowing, dizziness. RESPIRATORY: Denies dyspnea, cough, wheezing, hemoptysis, sputum. CARDIOVASCULAR: See HPI GASTROINTESTINAL: Denies nausea, vomiting, abdominal pain, diarrhea, constipation, melena. : Denies dysuria, frequency, incontinence, hematuria, urinary retention. MUSCULOSKELETAL: denies weakness, joint pain, or bony pain SKIN: Denies rash, skin lesions, or other NEUROLOGIC: See HPI PSYCHIATRIC: No concerning psychosocial issues. 12 point review of systems is negative except for those stated above Patient History Medical History GERD (gastroesophageal reflux disease) REM sleep behavior disorder Social History household members: spouse Smoking Status: Never smoker alcohol intake: current substance use type: does not use Smoking Status: Never smoker alcohol intake frequency: holidays/special occasions only Substance Use Type: does not use Exam Narrative Exam Narrative: GENERAL: [57] year old patient appears stated age. Well-developed patient, in mild distress. GCS 15 HEAD: Left parietal scalp tender to palpate, no obvious bruising, contusion, laceration, no evidence of depressed skull fracture. EYES: Pupils equal round and reactive. No hyphema, Extraocular motions intact. No scleral icterus. No injection or drainage. ENT: Nose without bleeding, purulent drainage. Throat without erythema, tonsillar hypertrophy or exudate. Airway patent. NECK: Trachea midline. Non tender CARDIOVASCULAR: Regular rate and rhythm without murmurs, gallops, or rubs. Right anterior chest tenderness to palpation, no obvious swelling, crepitance RESPIRATORY: Clear to auscultation. Breath sounds equal bilaterally. No wheezes, rales, or rhonchi. GASTROINTESTINAL: Abdomen soft, non-tender, nondistended. EXTREMITIES: No edema or joint tenderness. BACK: Nontender without deformity or crepitance. No flank tenderness. NEURO: AOx3. SKIN: No rash or erythema of visible areas Initial Vital Signs Initial Vital Signs: Vital Signs Temperature 98.0 F 08/29/22 12:57 Pulse Rate 91 H 08/29/22 12:57 Respiratory Rate 14 08/29/22 12:57 Blood Pressure 184/98 H 08/29/22 12:57 Pulse Oximetry 96 08/29/22 12:57 Oxygen Delivery Method Room Air 08/29/22 12:57 Course Orders Ordered: ED Orders 08/29/22 18:12 CT cervical spine wo con Stat CT head/brain wo con Stat Vital Signs Vital signs: Vital Signs - 8 hr 08/29/22 18:29 08/29/22 18:29 08/29/22 18:30 Temperature Pulse Rate 85 Respiratory Rate Blood Pressure 149/85 H 148/87 H Pulse Oximetry 96 Oxygen Delivery Method 08/29/22 18:30 08/29/22 19:00 08/29/22 19:00 Temperature Pulse Rate 85 83 Respiratory Rate Blood Pressure 164/92 H Pulse Oximetry 96 96 Oxygen Delivery Method 08/29/22 19:35 Temperature 97.4 F L Pulse Rate 80 Respiratory Rate 16 Blood Pressure 152/72 H Pulse Oximetry 96 Oxygen Delivery Method Room Air MDM - Headache MDM Narrative Medical decision making narrative: [57] year old patient presents with headache and some nausea after striking her head, though the symptoms are not worse they are not better from the time of her head injury about a week ago Multiple etiologies for patient's symptoms considered including, but not limited to: [Concussion, intracranial hemorrhage versus other] Prior Charts reviewed in our EMR Primary Historian: patient Imaging reviewed: CTs of head and C-spine unremarkable and absent of evidence of fracture, dislocation or intracranial hemorrhage Patient's symptoms improved over duration of stay with above-stated therapies. Findings and discharge diagnosis discussed with patient/family followed by verbalization of understanding Return precautions discussed with patient/family whom verbalize understanding of diagnosis and plan Discharge Plan Departure Patient Disposition: Home Clinical Impression: Post concussion syndrome, Chest wall contusion Instructions: DI for Concussion Activity Restrictions/Additional Instructions: *You have been diagnosed with [postconcussion syndrome. As we discussed your history, physical exam and imaging are very reassuring, there is no evidence of bleeding in your brain or skull fracture.] *What to do: *Please continue to take your regular medications as directed. *Please follow up with your primary care provider in 2-3 days, call for an appointment. Let them know you were seen in the Emergency Department and that we ask that you be seen in follow up. We will electronically transmit a record of today's note if your PCP is in our system *If you do not have a primary care provider please contact the [facility] Resource line at [phone]. They will ask some questions about your medical history and help get you set up with a doctor in the community. *Return to Emergency Department if you should have any new, worsening or concerning symptoms, such as [fever greater than 101 F, shaking chills, worsening pain, persistent vomiting or other bothersome symptoms] Prescriptions: No Action losartan 50 MG tablet 25 mg PO QDAY Qty: 0 Patient Comments: 25-50mg depending on bp omeprazole 20 MG capsule,delayed release(DR/EC) 40 mg PO BID Qty: 0 lorazepam 0.5 MG tablet 0.5 mg PO TIDP PRN (Reason: Anxiety) Qty: 0 cholecalciferol (vitamin D3) [Vitamin D3] 1,000 unit Capsule 1,000 unit PO DAILY Qty: 0 Excedrin Extra Strength 1 EACH tablet 1 tab PO PRN PRN (Reason: Headache) Qty: 0 ibuprofen [Advil] 200 MG tablet 200 mg PO Q4HP PRN (Reason: Pain (Scale Score 1-3)) Qty: 0 bupropion HCl 100 mg tablet sustained-release 12 hr 150 mg PO DAILY hydrocodone-acetaminophen 5-325 mg tablet 1 tab PO Q6H PRN (Reason: pain) Qty: 10 0RF metformin 500 mg tablet 500 mg PO BID rosuvastatin 20 mg tablet 20 mg PO DAILY sertraline 25 mg tablet 25 mg PO BID terbinafine HCl 250 mg tablet 250 mg PO DAILY hydroxyzine HCl 50 mg tablet 50 mg PO BEDTIME Referrals: Blessing Beck MD [Primary Care Provider] - Stand Alone Forms: Patient Portal/API
== END 2022-08-29 19:36 | disposition home or self-care (01) ==
PROVIDERS: Emergency Provider Emergency Medicine; PCP Family Medicine
DX: F07.81 Postconcussional syndrome (principal); S20.219A Contusion of unspecified front wall of thorax, initial encounter; R07.89 Other chest pain; W22.01XA Walked into wall, initial encounter
CPT/HCPCS: 70450; 72125; 99281; 99284

== ENCOUNTER 2024-01-08 14:40 | Day surgery (SDC) | payer MEDICAID, OTHER, SELFPAY ==
[2024-01-08 14:59] VITALS: BP 139/90; PULSE 95; RESP 14; TEMP 36.5; O2SAT 96
[2024-01-08] MEDS: LACTATED RINGERS 1,000 ML 42 ML IV (15:14)
--- NOTE | 2024-01-08 15:49 | PM.HP.1 ---
History of Present Illness History of Present Illness Date Patient Seen: 01/08/24 Time Patient Seen: 15:49 Chief complaint: Screening Colonoscopy Narrative: 58-year-old woman here for screening colonoscopy. History of sigmoid colectomy for benign disease since then has had alternating bowel function. Endorses occasional blood per rectum. [facility] Medical History Obstructive sleep apnea syndrome IBS (irritable bowel syndrome) Diarrhea REM sleep behavior disorder GERD (gastroesophageal reflux disease) Surgical History Hx of appendectomy History of cataract surgery History of colon resection Family History Mother Hypertension Diabetes mellitus Stroke Father Hypertension Prostate cancer Sister Hypertension Diabetes mellitus Breast cancer Cancer Ovarian cancer Brother Hypertension Diabetes mellitus Social History marital status: unknown household members: friend(s) lives independently: Yes occupational status: other Smoking Status: Never smoker alcohol intake: current substance use type: does not use Meds Home Medications and Allergies Home Medications Medication Instructions Recorded Confirmed Type losartan 50 mg tablet 25 mg PO QDAY ##0 01/07/17 01/08/24 History omeprazole 20 mg capsule,delayed 40 mg PO BID ##0 01/07/17 01/08/24 History release bupropion HCl 100 mg tablet,12 hr 150 mg PO DAILY 03/26/22 01/08/24 History sustained-release metformin 500 mg tablet 500 mg PO BID 03/26/22 01/08/24 History rosuvastatin 20 mg tablet 20 mg PO DAILY 03/26/22 01/08/24 History sertraline 25 mg tablet 25 mg PO BID 03/26/22 01/08/24 History peg 3350-electrolytes 236 240 ml PO Q10M #4,000 mL 11/20/23 01/08/24 Rx gram-22.74 gram-6.74 gram-5.86 gram solution (Golytely) Allergies Allergy/AdvReac Type Severity Reaction Status Date / Time adhesive [ADHESIVE] Allergy Intermediate RASH - Verified 01/08/24 14:57 WITH SOME BANDAIDS, EYE LASH GLUE Exam Vital Signs (past 8 hours): - 01/08/24 14:59 Temperature 97.7 F Pulse Rate 95 H Respiratory Rate 14 Blood Pressure 139/90 Pulse Oximetry 96 Oxygen Delivery Method Room Air Oxygen Delivery Method Room Air Narrative Exam Narrative: General adult woman alert oriented no acute distress Chest nonlabored respiration Extremities warm well perfused Assessment & Plan Assessment & Plan narrative: The patient requires colorectal screening and colonoscopy is recommended. Technical details were discussed. Risks, benefits, alternatives explained. Risks including but not limited to myocardial infarction, aspiration, bleeding, pain, missed lesion, incomplete examination, need for further radiographic studies, intestinal injury, and need for major abdominal surgery were discussed. All questions were answered to their satisfaction, and they are in agreement with this plan. Time-Based Coding :: [TOTAL MINUTES] spent with patient and on the chart (including review of chart, obtaining history, exam, reviewing outside data, placing orders, documenting exam and treatment plan, and counseling patient) on [DATE].
[2024-01-08 16:18] VITALS: BP 117/73; PULSE 78; RESP 16; TEMP 36.1; O2SAT 97
[2024-01-08 16:23] VITALS: BP 118/72; PULSE 87; RESP 16; O2SAT 99
[2024-01-08 16:28] VITALS: BP 118/68; PULSE 84; RESP 16; O2SAT 99
--- NOTE | 2024-01-08 16:28 | P.OP.COLON_ITS ---
Operative Date/Time/Diagnoses Date of procedure: 01/08/24 Time of procedure: 16:28 Pre-op diagnosis: Abdominal pain Post-op diagnosis: same Procedure & Clinicians Study performed: Diagnostic colonoscopy Same procedure as scheduled: Yes Indications: 58-year-old woman history of colectomy for benign disease with abdominal pain. Surgeon: Gavin Hyde Procedure Notes Procedure in detail: The history and physical was performed/updated and the patient is ASA class is 2. The procedure was discussed in detail with the patient. Potential risks complications including infection, bleeding, missed diagnosis, perforation, need for surgery, and were explained. Their questions were answered and informed consent was obtained. Patient was brought to the procedure room and placed standard monitoring equipment. The patient's vital signs were monitored continuously throughout the entire procedure. Prior to starting time-out was performed. The patient was placed in the left lateral recumbent position. Procedural sedation was administ ered by anesthesia. Examination began with a thorough inspection of the perianal area there was no evidence of fissures, fistulae, external hemorrhoids or cutaneous malignancy. The colonoscopy scope was then placed into the anal canal and was advanced to the cecum, which was identified by the ileocecal valve, the appendiceal orifice and the confluence of the taenia. The scope was then slowly withdrawn examining colon thoroughly in all directions, irrigating it of any residual stool. The scope was retroflexed within the rectum The patient tolerated the procedure well. They will be discharged once criteria are met. The prep was of good/excellent quality. The withdrawl time was 7 minutes. FINDINGS * Normal distal colonic anastomosis without stricture. * Diverticulosis of descending colon * No mass or polyp Specimen(s): none sent Impression: Normal colonoscopy Post-procedure Recommendations: Colonoscopy in 10 years Disposition: same day surgery
[2024-01-08 16:31] VITALS: BP 125/78; PULSE 86; RESP 18; O2SAT 100
== END 2024-01-08 16:48 | disposition home or self-care (01) ==
PROVIDERS: PCP Family Medicine; Referring Provider Surgery; Visit Provider Surgery
PROC: 0DJD8ZZ Inspection of Lower Intestinal Tract, Via Natural or Artificial Opening Endoscopic (ICD-10-PCS; CPT 45378; principal; 2024-01-08 15:30)
DX: R10.9 Unspecified abdominal pain (principal); K57.30 Diverticulosis of large intestine without perforation or abscess without bleeding
CPT/HCPCS: 45378; J2704

== ENCOUNTER → 2024-01-14 15:24 | Outpatient (CLI) | payer MEDICAID, OTHER, SELFPAY ==
--- NOTE | 2024-01-14 15:25 | DI.MG.S_ITS ---
BILATERAL DIGITAL SCREENING MAMMOGRAM 3D/2D WITH CAD: 01/14/2024 CLINICAL: Routine screening. Family history of breast cancer. Comparison is made to exams dated: 06/25/2019 mammogram - [facility], 11/03/2017 mammogram, and 10/30/2016 mammogram - [facility]. Both breasts are heterogeneously dense, which may obscure small masses (category c / 51-75% glandular tissue). Current study was also evaluated with a Computer Aided Detection (CAD) system. There is a new oval asymmetry in the right breast posterior depth lateral region seen on the craniocaudal view only. No other significant masses, calcifications, or other findings are seen in either breast. IMPRESSION: INCOMPLETE: NEEDS ADDITIONAL IMAGING EVALUATION The new oval asymmetry in the right breast is indeterminate. Additional views with possible ultrasound are recommended. Based on the Tyrer Cuzick model (a risk assessment model) the patient's lifetime risk is 12.0% and her 10 year risk is 4.9%. According to the ACR, ACS, and NCCN guidelines, an annual breast MRI exam along with mammogram is recommended if the patient's lifetime risk is 20% or greater. This exam was interpreted at Station ID: [id number]. NOTE: For mammograms, a report in lay terms will be sent to the patient. Approximately 15% of breast malignancies will not be visualized mammographically. In the management of a palpable breast mass, a negative mammogram must not discourage biopsy of a clinically suspicious lesion. Electronically Signed By: Slade Kitchen M.D. [facility] [place]/:01/15/2024 08:18:41 letter sent: Additional Imaging Needed ACR BI-RADS Category 0: Incomplete [id number]
== END ==
PROVIDERS: PCP Family Medicine; Referring Provider Family Medicine; Visit Provider Family Medicine
DX: Z12.31 Encounter for screening mammogram for malignant neoplasm of breast (principal); Z80.3 Family history of malignant neoplasm of breast; R92.333 Mammographic heterogeneous density, bilateral breasts
CPT/HCPCS: 77063; 77067

== ENCOUNTER → 2024-04-22 09:19 | Outpatient (CLI) | payer MEDICAID, OTHER, SELFPAY ==
--- NOTE | 2024-04-22 09:21 | DI.MG.S_ITS ---
UNILATERAL RIGHT DIGITAL DIAGNOSTIC MAMMOGRAM 3D/2D WITH ADDITIONAL VIEWS: 04/22/2024 CLINICAL: Additional evaluation requested from prior study. Comparison is made to exams dated: 01/14/2024 mammogram, 06/25/2019 mammogram - [facility], and 11/03/2017 mammogram - [facility]. The breasts are heterogeneously dense, which may obscure small masses (category c / 51-75% glandular tissue). The finding seen on recent screening mammogram did not persist with additional imaging and is consistent with superimposition of normal breast tissue. No significant masses, calcifications, or other findings are seen in the breast. IMPRESSION: NEGATIVE Superimposition of normal breast tissue. No mammographic evidence of malignancy. A 1 year screening mammogram is recommended. Findings and recommendations were conveyed to the patient during today's evaluation. Based on the Tyrer Cuzick model (a risk assessment model) the patient's lifetime risk is 12.0% and her 10 year risk is 4.9%. According to the ACR, ACS, and NCCN guidelines, an annual breast MRI exam along with mammogram is recommended if the patient's lifetime risk is 20% or greater. This exam was interpreted at Station ID: [id number]. NOTE: For mammograms, a report in lay terms will be sent to the patient. Approximately 15% of breast malignancies will not be visualized mammographically. In the management of a palpable breast mass, a negative mammogram must not discourage biopsy of a clinically suspicious lesion. Electronically Signed By: Roxy Ventura M.D., Ph.D. eb/:04/22/2024 13:28:24 letter sent: Normal Exam ACR BI-RADS Category 1: Negative
== END ==
PROVIDERS: PCP Family Medicine; Referring Provider Family Medicine; Visit Provider Family Medicine
DX: R92.8 Other abnormal and inconclusive findings on diagnostic imaging of breast (principal); R92.333 Mammographic heterogeneous density, bilateral breasts
CPT/HCPCS: 77065; G0279

== ENCOUNTER → 2024-09-08 08:28 | Outpatient (CLI) | payer MEDICAID, OTHER, SELFPAY ==
--- NOTE | 2024-09-08 08:30 | DI.US.S_ITS ---
PROCEDURE: US ABDOMEN COMPLETE INDICATIONS: ELEVATED LIVER FUNCTION TESTS TECHNIQUE: Real-time scanning was performed of the abdominal and retroperitoneal organs, with image documentation. COMPARISON: [facility], CT, CT ABDOMEN PELVIS W CON, 05/06/2018, 13:49. FINDINGS: Liver: Liver is normal in size and mildly increased in echogenicity. Gallbladder: Multiple gallstones with [id number] sign. No gallbladder wall thickening or pericholecystic fluid. Sonographic Costello sign is negative. Questionable soft tissue lesion versus small calculus or normal fold at the gallbladder neck measuring up to 7 mm without internal vascularity seen. Biliary ducts: Intrahepatic bile ducts are non-dilated. Extrahepatic bile duct caliber measures 4.7 mm. Normal is 6-7 mm or less in diameter, or 10 mm or less post-cholecystectomy. Pancreas: Visualized portions of the pancreas are sonographically normal. Miscellaneous: No free right upper quadrant fluid. IMPRESSION: 1. Cholelithiasis without signs of acute cholecystitis. 2. Questionable 7 mm polyp versus small calculus or normal structure at the gallbladder neck, which is not well visualized. Recommend 1 year follow-up ultrasound. 3. Diffusely mildly increased hepatic echogenicity is nonspecific, but most commonly encountered in the setting of mild hepatic steatosis. However, other causes of hepatocellular disease are not excluded. Recommend clinical correlation. Approved by: Mich Geller M.D. on 09/08/2024 at 9:46
== END ==
PROVIDERS: PCP Family Medicine; Referring Provider Family Medicine; Visit Provider Family Medicine
DX: K80.20 Calculus of gallbladder without cholecystitis without obstruction (principal); R79.89 Other specified abnormal findings of blood chemistry
CPT/HCPCS: 76705

== ENCOUNTER → 2024-12-28 15:41 | Outpatient (CLI) | payer MEDICAID, OTHER, SELFPAY ==
--- NOTE | 2024-12-28 15:45 | DI.US.S_ITS ---
PROCEDURE: US THYROID INDICATIONS: SUBCLINICAL HYPOTHYROIDISM TECHNIQUE: Real-time scanning was performed of the thyroid gland, with image documentation. Twenty-one images COMPARISON: None. FINDINGS: Thyroid: Right lobe measures 4.2 x 1.4 x 1.4 cm. Left lobe measures 4.3 x 1.5 x 1.1 cm. Isthmus is 0.3 cm thick. Echotexture is mildly heterogeneous. No ultrasound evidence of thyroid nodule. IMPRESSION: Mildly heterogeneous thyroid, no ultrasound evidence of thyroid nodule. Dictated by: Myron English M.D. on 12/29/2024 at 10:35 Approved by: Myron English M.D. on 12/29/2024 at 10:41
== END ==
PROVIDERS: PCP Family Medicine; Referring Provider Nurse Practitioner Family; Visit Provider Nurse Practitioner Family
DX: E03.8 Other specified hypothyroidism (principal)
CPT/HCPCS: 76536

== ENCOUNTER → 2024-12-29 15:17 | Outpatient (CLI) | payer MEDICAID, OTHER, SELFPAY ==
--- NOTE | 2024-12-29 | DI.RAD.S_ITS ---
PROCEDURE: XR SACRUM COCCYX MIN 2V INDICATIONS: LOW BACK PAIN TECHNIQUE: 3 views of the sacrum and coccyx acquired. COMPARISON: None. FINDINGS: Bones: No fractures or dislocations. No suspicious bony lesions. Soft tissues: Visualized bowel gas pattern is normal. No suspicious soft tissue densities. IMPRESSION: No evidence of acute osseous abnormality. Dictated by: Pramod Kumar M.D. on 01/01/2025 at 17:24 Approved by: Pramod Kumar M.D. on 01/01/2025 at 17:24
--- NOTE | 2024-12-29 15:21 | DI.RAD.S_ITS ---
PROCEDURE: XR LUMBAR SPINE 2-3V INDICATIONS: BACK PAIN TECHNIQUE: 3 views of the lumbar spine were acquired. COMPARISON: None. FINDINGS: Lumbar spine curvature and alignment: Normal. Bones: There are no osseous abnormalities. Disc spaces: Mild T12-L1 through L4-5 and moderate L5-S1 degenerative disc disease noted. Mild L4-5 and moderate L5-S1 degenerative facet disease Intervertebral foramen: Grossly normal in width. Soft tissues: No soft tissue swelling, calcification or mass. IMPRESSION: Degeneration Dictated by: Nolan Scales M.D. on 12/30/2024 at 11:39 Approved by: Nolan Scales M.D. on 12/30/2024 at 11:40
== END ==
LOC: RAD 15:18
PROVIDERS: PCP Family Medicine; Referring Provider Nurse Practitioner Family; Visit Provider Nurse Practitioner Family
DX: M53.3 Sacrococcygeal disorders, not elsewhere classified (principal); M51.16 Intervertebral disc disorders with radiculopathy, lumbar region; M51.17 Intervertebral disc disorders with radiculopathy, lumbosacral region; M47.26 Other spondylosis with radiculopathy, lumbar region; M47.27 Other spondylosis with radiculopathy, lumbosacral region
CPT/HCPCS: 72100; 72220

== ENCOUNTER → 2025-01-16 13:50 | Outpatient (CLI) | payer MEDICAID, OTHER, SELFPAY ==
--- NOTE | 2025-01-16 13:51 | DI.MG.S_ITS ---
MM screening mammo BI: 01/16/2025. BI-RADS: 1 CLINICAL: 59-year old female for bilateral screening mammogram. Tyrer-Cuzick lifetime risk of 17.6%. No personal or first-degree family history of breast cancer. PRIOR EXAMS 04/22/2024, 01/14/2024, 06/25/2019, 11/03/2017. MAMMOGRAPHY TECHNIQUE: 2D and 3D (tomosynthesis) digital mammographic views obtained, with additional images as needed for full coverage. Current study was also evaluated with a Computer Aided Detection (CAD) system. DENSITY C. The breasts are heterogeneously dense, which may obscure small masses. MAMMOGRAPHY FINDINGS Bilateral: No suspicious mass, asymmetry, microcalcification, or other abnormality seen. No significant change from comparison. IMPRESSION: * No evidence of malignancy. RECOMMENDATIONS Bilateral * Annual screening mammography. OVERALL ASSESSMENT CATEGORY BI-RADS-1: Negative. The [employer] recommends annual screening mammography beginning at age 40 for women with average risk of breast cancer. ELECTRONICALLY SIGNED: Galina Rowe M.D. on 01/16/2025 at 04:50:08 PM PT Interpreting Station ID: [id number]
== END ==
PROVIDERS: PCP Nurse Practitioner Family; Referring Provider Nurse Practitioner Family; Visit Provider Nurse Practitioner Family
DX: Z12.31 Encounter for screening mammogram for malignant neoplasm of breast (principal); R92.333 Mammographic heterogeneous density, bilateral breasts
CPT/HCPCS: 77063; 77067